=== PATIENT | male | born 1970 | race Caucasian/White ===

== ENCOUNTER 2023-01-28 13:16 | Emergency (ER) | payer OTHER ==
[2023-01-28 14:04] LABS: Absolute Lymphocytes (CBC) 2.9 K/uL (0.7-4.9); Hematocrit 45.9 % (39.6-49.0); Lymphocytes % 23.8 % (15.3-44.8); MCV 93.8 fL (80-100); MPV 9.3 fL (7.6-11.3); Platelets 111 thou/uL (152-406)
[2023-01-28] MEDS ORDERED: predniSONE 20 MG TAB ONE (14:04)
[2023-01-28] MEDS ORDERED: DIPHENHYDRAMINE 50 MG/ML VIAL ONE (14:04)
[2023-01-28] MEDS ORDERED: METHYLPREDNISOLONE 125 MG INJ ONE (14:04)
[2023-01-28] MEDS ORDERED: NA CHLORIDE 0.9% 1,000 ML ONE (14:05)
[2023-01-28] MEDS ORDERED: FAMOTIDINE 20 MG/2 ML VIAL IV ONE (14:05)
[2023-01-28] MEDS ORDERED: ONDANSETRON 4 MG/2 ML VIAL ONE (14:28)
[2023-01-28] MEDS ORDERED: KETOROLAC 30 MG/ML INJ ONE (14:28)
[2023-01-28 15:11] LABS: Albumin 3.3 g/dL (3.4-5.0); Bilirubin Total 0.4 mg/dL (0.2-1.0); Potassium 3.7 mEq/L (3.5-5.1); Troponin High Sensitivity 3.4 pg/mL (<58.9)
--- NOTE | 2023-01-28 15:21 | ER ---
Nurse's Notes [facility] Name: Marcin Herrera Age: 52 yrs Sex: Male : 1970 Arrival Date: 01/28/2023 Time: 13:16 Bed 18 Private MD: Diagnosis: Toxic effect of venom of wasps;Toxic effect of venom of wasps, accidental (unintentional) Presentation: 01/28 13:25 Chief complaint: Patient states: being stung in the head by something unknown. Pt cm10 states that this happened 20 minutes [employer]IOR [employer]. Pt reports that last time he was stung by something, "I passed out and started having seizures.". Coronavirus screen: Vaccine status: Patient reports being unvaccinated. Ebola Screen: Patient denies travel to an Ebola-affected area in the 21 days before illness onset. No symptoms or risks identified at this time. Initial Sepsis Screen: Does the patient meet any 2 criteria? No. Patient's initial sepsis screen is negative. Does the patient have a suspected source of infection? No. Patient's initial sepsis screen is negative. Risk Assessment: Do you want to hurt yourself or someone else? Patient reports no desire to harm self or others. Onset of symptoms was January 28, 2023. 13:25 Method Of Arrival: Ambulatory cm10 13:25 Acuity: CHARLIE 3 cm10 Historical: - Allergies: 13:27 Amoxicillin; cm10 - Home Meds: 13:27 None [Active]; cm10 - PMHx: 13:27 None; cm10 - Immunization history:: Adult Immunizations unknown. - Social history:: Smoking status: Patient reports the use of cigarette tobacco products, smokes one pack cigarettes per day. Screenin:30 [facility] ED Fall Risk Assessment (Adult) History of falling in the last 3 months, me1 including since admission No falls in past 3 months (0 pts) Confusion or Disorientation No (0 pts) Intoxicated or Sedated No (0 pts) Impaired Gait No (0 pts) Mobility Assist Device Used No (0 pt) Altered Elimination No (0 pt) Score/Fall Risk Level 0 - 2 = Low Risk Oriented to surroundings, Educated pt \\T\\ family on fall prevention, incl call for assistance when getting out of bed, Hourly rounding (assess needs \\T\\ fall precautionary measures) done. Abuse screen: Denies threats or abuse. Nutritional screening: No deficits noted. Tuberculosis screening: No symptoms or risk factors identified. Assessment: 13:30 General: Appears uncomfortable, well groomed, well developed, well nourished, Behavior me1 is cooperative, appropriate for age, anxious, restless, Reports getting stung on the back of the head by something at 12:50pm. Reports that his face turned red and was sweating all over then his chest started to feel tight. Pain: Denies pain. 13:30 Pain: Complains of pain in head Pain currently is 7 out of 10 on a pain scale. Quality me1 of pain is described as throbbing. Neuro: Level of Consciousness is awake, alert, obeys commands, Oriented to person, place, time, situation, Appropriate for age. Cardiovascular: Capillary refill < 3 seconds Patient's skin is warm and dry. Respiratory: Airway is patent Respiratory effort is even, unlabored, Respiratory pattern is regular, symmetrical. Vital Signs: 13:25 BP 155 / 97; Pulse 84; Resp 18; Temp 97.1(TE); Pulse Ox 98% ; Weight 86.18 kg; Height 6 cm10 ft. 0 in. ; Pain 8/10; 15:07 BP 122 / 89; Pulse 74; Resp 17; Pulse Ox 100% on R/A; ld1 15:39 BP 126 / 94; Pulse 72; Resp 20; Pulse Ox 96% on R/A; me1 13:25 Body Mass Index 25.77 (86.18 kg, 182.88 cm) cm10 13:25 Pain Scale: Adult cm10 ED Course: 13:19 Patient arrived in ED. rg4 13:26 Jez Damian MD is Attending Physician. dragan 13:27 Triage completed. cm10 13:27 Arm band placed on Patient placed in an exam room, on a stretcher. cm10 13:30 Patient has correct armband on for positive identification. Bed in low position. Call me1 light in reach. Side rails up X2. Provided Education on: POC. Verbalized understanding. . 13:30 No provider procedures requiring assistance completed. IV is patent, is intact, Flushed.me1 13:33 Jina Plunkett RN is Primary Nurse. me1 14:09 Inserted saline lock: 22 gauge in right antecubital area, using aseptic technique. me1 15:51 IV discontinued, intact, bleeding controlled, No redness/swelling at site. Pressure cm10 dressing applied. 16:43 Primary Nurse role handed off by Jina Plunkett, MARY ANNE eb Administered Medications: 14:09 Drug: Famotidine IVP 40 mg Route: IVP; Site: right antecubital; me1 14:43 Follow up: Response: No adverse reaction cm10 14:09 Drug: MethylPrednisoLONE IVP 125 mg Route: IVP; Site: right antecubital; me1 14:43 Follow up: Response: No adverse reaction cm10 14:09 Drug: predniSONE PO 60 mg Route: PO; me1 14:44 Follow up: Response: No adverse reaction cm10 14:10 Drug: NS 0.9% IV 1000 ml Route: IV; Rate: 1 bolus; Site: right antecubital; me1 15:40 Follow up: IV Status: Completed infusion; IV Intake: 1000ml me1 14:10 Drug: diphenhydrAMINE IVP 50 mg Route: IVP; Site: right antecubital; me1 14:43 Follow up: Response: No adverse reaction cm10 14:18 Drug: Ketorolac IVP 30 mg Route: IVP; Site: right antecubital; me1 14:44 Follow up: Response: No adverse reaction; Pain is decreased cm10 14:18 Drug: Ondansetron IVP 4 mg Route: IVP; Site: right antecubital; me1 14:44 Follow up: Response: No adverse reaction cm10 Medication: 13:30 VIS not applicable for this client. me1 Intake: 15:40 IV: 1000ml; Total: 1000ml. me1 Outcome: 15:21 Discharge ordered by . dragan 15:51 Discharged to home ambulatory, with family. cm10 15:51 Condition: good 15:51 Discharge instructions given to patient, Instructed on discharge instructions, follow up and referral plans. medication usage, Demonstrated understanding of instructions, follow-up care, medications, Prescriptions given X 4. 15:51 Patient left the ED. cm10 16:44 Patient left the ED. eb Signatures: Jez Damian MD MD cha Garcia, Rubi 4 Anamaria Caraballo Lauren, RN RN ld1 Carito Daley RN RN cm10 Eddleman, Jina, RN RN me1
--- NOTE | 2023-01-28 15:21 | EDPHYS ---
Physician Documentation [facility] Name: Marcin Herrera Age: 52 yrs Sex: Male : 1970 Arrival Date: 01/28/2023 Time: 13:16 Bed 18 Private MD: ED Physician Jez Damian HPI: 01/28 14:02 This 52 yrs old Male presents to ER via Ambulatory with complaints of Wasp dragan Sting. 14:02 The patient presents with difficulty swallowing, rash, redness of skin. Onset: The dragan symptoms/episode began/occurred just prior to arrival. Associated signs and symptoms: Pertinent positives: chest pain, nausea, shortness of breath. Possible causes: wasp. At home the patient or guardian has treated the symptoms with nothing. Severity of symptoms: At their worst the symptoms were moderate in the emergency department the symptoms are unchanged. The patient has experienced similar episodes in the past, a few times. Historical: - Allergies: 13:27 Amoxicillin; cm10 - Home Meds: 13:27 None [Active]; cm10 - PMHx: 13:27 None; cm10 - Immunization history:: Adult Immunizations unknown. - Social history:: Smoking status: Patient reports the use of cigarette tobacco products, smokes one pack cigarettes per day. ROS: 14:03 Constitutional: Negative for fever, chills, and weight loss, Eyes: Negative for injury, dragan pain, redness, and discharge, ENT: Negative for injury, pain, and discharge, Neck: Negative for injury, pain, and swelling, Cardiovascular: Negative for chest pain, palpitations, and edema, Respiratory: Negative for shortness of breath, cough, wheezing, and pleuritic chest pain, Abdomen/GI: Negative for abdominal pain, nausea, vomiting, diarrhea, and constipation, Back: Negative for injury and pain, : Negative for injury, bleeding, discharge, and swelling, MS/Extremity: Negative for injury and deformity, Neuro: Negative for headache, weakness, numbness, tingling, and seizure, Psych: Negative for depression, anxiety, suicide ideation, homicidal ideation, and hallucinations, Allergy/Immunology: Negative for hives, rash, and allergies, Endocrine: Negative for neck swelling, polydipsia, polyuria, polyphagia, and marked weight changes, Hematologic/Lymphatic: Negative for swollen nodes, abnormal bleeding, and unusual bruising. 14:03 Skin: Positive for rash, swelling, of the scalp. Exam: 14:03 Constitutional: This is a well developed, well nourished patient who is awake, alert, dragan and in no acute distress. Eyes: Pupils equal round and reactive to light, extra-ocular motions intact. Lids and lashes normal. Conjunctiva and sclera are non-icteric and not injected. Cornea within normal limits. Periorbital areas with no swelling, redness, or edema. ENT: Nares patent. No nasal discharge, no septal abnormalities noted. Tympanic membranes are normal and external auditory canals are clear. Oropharynx with no redness, swelling, or masses, exudates, or evidence of obstruction, uvula midline. Mucous membranes moist. Neck: Trachea midline, no thyromegaly or masses palpated, and no cervical lymphadenopathy. Supple, full range of motion without nuchal rigidity, or vertebral point tenderness. No Meningismus. Chest/axilla: Normal chest wall appearance and motion. Nontender with no deformity. No lesions are appreciated. Cardiovascular: Regular rate and rhythm with a normal S1 and S2. No gallops, murmurs, or rubs. Normal PMI, no JVD. No pulse deficits. Respiratory: Lungs have equal breath sounds bilaterally, clear to auscultation and percussion. No rales, rhonchi or wheezes noted. No increased work of breathing, no retractions or nasal flaring. Abdomen/GI: Soft, non-tender, with normal bowel sounds. No distension or tympany. No guarding or rebound. No evidence of tenderness throughout. Back: No spinal tenderness. No costovertebral tenderness. Full range of motion. Male : Normal genitalia with no discharge or lesions. Skin: Warm, dry with normal turgor. Normal color with no rashes, no lesions, and no evidence of cellulitis. MS/ Extremity: Pulses equal, no cyanosis. Neurovascular intact. Full, normal range of motion. Neuro: Awake and alert, GCS 15, oriented to person, place, time, and situation. Cranial nerves II-XII grossly intact. Motor strength 5/5 in all extremities. Sensory grossly intact. Cerebellar exam normal. Normal gait. Psych: Awake, alert, with orientation to person, place and time. Behavior, mood, and affect are within normal limits. 14:03 Head/face: Noted is swelling, that is mild, of the left occipital area and right occipital area. 16:43 ECG was reviewed by the Attending Physician. [facility] Vital Signs: 13:25 BP 155 / 97; Pulse 84; Resp 18; Temp 97.1(TE); Pulse Ox 98% ; Weight 86.18 kg; Height 6 cm10 ft. 0 in. ; Pain 8/10; 15:07 BP 122 / 89; Pulse 74; Resp 17; Pulse Ox 100% on R/A; ld1 15:39 BP 126 / 94; Pulse 72; Resp 20; Pulse Ox 96% on R/A; me1 13:25 Body Mass Index 25.77 (86.18 kg, 182.88 cm) cm10 13:25 Pain Scale: Adult cm10 MDM: 13:26 Patient medically screened. [facility] 14:05 Differential diagnosis: anaphylaxis, angioedema, bronchospasm, Epiglottis urticaria. [facility] Data reviewed: vital signs, nurses notes, lab test result(s), EKG. Consideration of Admission/Observation Escalation of care including admission/observation considered. I considered the following discharge prescriptions or medication management in the emergency department Medications were administered in the Emergency Department. See MAR. Test considered but Not performed: X-ray: no cxr. Historians other than the Patient: Spouse/Significant Other: . Care significantly affected by the following chronic conditions: none. Counseling: I had a detailed discussion with the patient and/or guardian regarding the historical points, exam findings, and any diagnostic results supporting the discharge/admit diagnosis, lab results, the need for outpatient follow up, for definitive care, a family practitioner. 01/28 13:41 Order name: CBC with Diff; Complete Time: 15:21 [facility] 01/28 13:41 Order name: Comprehensive Metabolic Panel; Complete Time: 15:21 [facility] 01/28 13:41 Order name: Troponin High Sensitivity; Complete Time: 15:21 [facility] 01/28 13:41 Order name: EKG; Complete Time: 13:41 [facility] 01/28 13:41 Order name: EKG - Nurse/Tech; Complete Time: 14:47 [facility] EC:43 Rate is 69 beats/min. Rhythm is regular. QRS [place] is Normal. MS interval is normal. QRS dragan interval is normal. QT interval is normal. No Q waves. T waves are Normal. No ST changes noted. Clinical impression: NSR w/ Non-specific ST/T Changes and No evidence of ischemia. Interpreted by me. Reviewed by me. Administered Medications: 14:09 Drug: Famotidine IVP 40 mg Route: IVP; Site: right antecubital; me1 14:43 Follow up: Response: No adverse reaction cm10 14:09 Drug: MethylPrednisoLONE IVP 125 mg Route: IVP; Site: right antecubital; me1 14:43 Follow up: Response: No adverse reaction cm10 14:09 Drug: predniSONE PO 60 mg Route: PO; me1 14:44 Follow up: Response: No adverse reaction cm10 14:10 Drug: NS 0.9% IV 1000 ml Route: IV; Rate: 1 bolus; Site: right antecubital; me1 15:40 Follow up: IV Status: Completed infusion; IV Intake: 1000ml me1 14:10 Drug: diphenhydrAMINE IVP 50 mg Route: IVP; Site: right antecubital; me1 14:43 Follow up: Response: No adverse reaction cm10 14:18 Drug: Ketorolac IVP 30 mg Route: IVP; Site: right antecubital; me1 14:44 Follow up: Response: No adverse reaction; Pain is decreased cm10 14:18 Drug: Ondansetron IVP 4 mg Route: IVP; Site: right antecubital; me1 14:44 Follow up: Response: No adverse reaction cm10 Disposition Summary: 01/28/23 15:21 Discharge Ordered Location: Home dragan Condition: Stable dragan Diagnosis - Toxic effect of venom of wasps dragan - Toxic effect of venom of wasps, accidental (unintentional) dragan Followup: dragan - With: Private Physician - When: 2 - 3 days - Reason: Recheck today's complaints, Continuance of care, Re-evaluation by your physician Discharge Instructions: - Discharge Summary Sheet dragan - Anaphylactic Reaction, Adult dragan - Bee, Wasp, or Hornet Sting, Adult dragan - Anaphylactic Reaction, Adult, [id number] [facility] Forms: - Medication Reconciliation Form dragan - Thank You Letter dragan - Antibiotic Education dragan - Prescription Opioid Use dragan - Patient Portal Instructions dragan - Leadership Thank You Letter [facility] Prescriptions: - EpiPen 0.3 mg/0.3 mL Injection Auto-Injector - administer 0.3 milliliter by INTRAMUSCULAR route once; 1 packet; Refills: 0, dragan Product Selection Permitted - Benadryl 25 mg Oral Capsule - take 2 capsule by ORAL route every 6 hours As needed; 36 tablet; Refills: 0, [facility] Product Selection Permitted - Pepcid 20 mg Oral Tablet - take 1 tablet by ORAL route every 12 hours for 21 days; 42 tablet; Refills: 0, [facility] Product Selection Permitted - Prednisone 20 mg Oral Tablet - take 2 tablets by ORAL route once daily for 5 days; 10 tablet; Refills: 0, [facility] Product Selection Permitted Signatures: Dispatcher [employer] Jez Quintero MD MD cha Martinez, Clarissa RN RN cm10 Jina Plunkett RN RN me1
[2023-01-28 15:56] VITALS: TEMP 97.1
[2023-01-28 16:00] VITALS: BP 126/94; O2SAT 96
--- NOTE | 2023-01-29 12:15 | EKG ---
Test Date: 2023-01-28 Test Time: 14:50:49 Cardboard Cutter: MEASUREMENT RESULTS: Intervals: Rate: 69 OH: 132 QRSD: 100 QT: 420 QTc: 450 [place]: P: 40 OH: 132 QRS: 69 T: 59 INTERPRETIVE STATEMENTS: Normal sinus rhythm Incomplete right bundle branch block Borderline ECG No previous ECG available for comparison Electronically Signed On 01-29-23 12:12:34 CDT by Johnny Alonzo
== END 2023-01-28 16:44 | disposition home or self-care (01) ==
LOC: ER 13:16
DX: R07.9 Chest pain, unspecified (principal); T63.461A Toxic effect of venom of wasps, accidental (unintentional), initial encounter; R21 Rash and other nonspecific skin eruption; F17.210 Nicotine dependence, cigarettes, uncomplicated; Z88.1 Allergy status to other antibiotic agents
CPT/HCPCS: 85025; 36415; 84484; 80053; J7512; J1200; J2930; J2405; J7030; 93005; 96361; 96374; 96375; 99284

== ENCOUNTER 2024-01-27 08:45 | Emergency (ER) | payer OTHER ==
--- OUTSIDE RECORDS SUMMARY | 2024-01-27 08:48 | XMS REPORT | Continuity of Care Document ---
Author Name Unknown Address [address] [place] [address] [facility] Address [address] [place] [address] Care Team Providers Care [employer] Worker Name Role Phone ILIA_F Attending Clinician Unavailable ILIA_F Admitting Clinician Unavailable Payers Payer Name Policy Type Policy Number Effective Date Expirati on Date Source Problems Condition Name Condition Details Condition Category Status Onset Date Resolution Date Last Treatment Date Treating Clinician Comments Source Hypertensi ve disorder Hypertensi ve Disorder Problem Active 07-04 00:00: 00 [facility] COVID-19 Covid-19 Problem Active 07-04 00:00: 00 [facility] Allergies, Adverse Reactions, Alerts Allergy Name Allergy Type Status Severity Reaction(s) Onset Date Inactive Date Treating Clinician Comments Source Erythrom ycin Base Allergy to substanc e Active Hives [facility] Social History Smoking Status Start Date Stop Date Source Heavy Tobacco Smoker [facility] Medications Ordered Medication Name Filled Medication Name Start Date Stop Date Current Medication? Ordering Clinician Indication Dosage Frequency Signature (SIG) Comments Components Source epinephrine 0.3 mg/0.3 mL injection, auto-inject or INJECT ONE PEN SUBCUTANEOU SLY INTRAMUSCUL ODESSA DIRECTED BY THE DOCTOR epinephrine 0.3 mg/0.3 mL injection, auto-inject or INJECT ONE PEN SUBCUTANEOU SLY INTRAMUSCUL ODESSA DIRECTED BY THE DOCTOR No epinephrin e 0.3 mg/0.3 mL injection, auto-injec tor INJECT ONE PEN SUBCUTANEO USLY INTRAMUSCU LARLY DIRECTED BY THE DOCTOR [facility] losartan 50 mg tablet TAKE 1 TABLET BY MOUTH DAILY losartan 50 mg tablet TAKE 1 TABLET BY MOUTH DAILY No losartan 50 mg tablet TAKE 1 TABLET BY MOUTH DAILY [facility] mupirocin 2 % topical ointment APPLY A SMALL AMOUNT TO THE AFFECTED AREA BY TOPICAL ROUTE 3 TIMES PER DAY mupirocin 2 % topical ointment APPLY A SMALL AMOUNT TO THE AFFECTED AREA BY TOPICAL ROUTE 3 TIMES PER DAY No mupirocin 2 % topical ointment APPLY A SMALL AMOUNT TO THE AFFECTED AREA BY TOPICAL ROUTE 3 TIMES PER DAY [facility] sulfamethox azole 800 mg-trimetho prim 160 mg tablet Take 1 tablet every 12 hours by oral route as directed for 10 days, for Skin Infection. sulfamethox azole 800 mg-trimetho prim 160 mg tablet Take 1 tablet every 12 hours by oral route as directed for 10 days, for Skin Infection. No 1 Q12H sulfametho xazole 800 mg-trimeth oprim 160 mg tablet Take 1 tablet every 12 hours by oral route as directed for 10 days, for Skin Infection. [facility] Vital Signs Vital Name Observation Time Observation Value Comments S ource Height 2024-01-21 00:00:00 72 [in_i] [facility] Body Weight 2024-01-21 00:00:00 2912 [oz_av] [facility] BP Systolic 2024-01-21 00:00:00 140 mm[Hg] [facility] BMI (Body Mass Index) 2024-01-21 00:00:00 24.7 kg/m2 [facility] BP Diastolic 2024-01-21 00:00:00 72 mm[Hg] [facility] BP Systolic 2023-07-04 00:00:00 144 mm[Hg] [facility] Body Weight 2023-07-04 00:00:00 3184 [oz_av] [facility] BP Diastolic 2023-07-04 00:00:00 80 mm[Hg] [facility] Height 2023-07-04 00:00:00 72 [in_i] [facility] BMI (Body Mass Index) 2023-07-04 00:00:00 27 kg/m2 [facility] Encounters Start Date/Time End Date/Time Encounter Type Admission Type Attending [facility] Care Department Encounter ID Source 2024-01-21 00:00:00 2024-01-21 00:00:00 ALYSIA Mina: [address] [place], [place] [id number] , Ph. [facility], EVIE [place]IA [place] [id number] 2023-09-14 00:00:00 2023-09-14 00:00:00 Outpatient [facility] [id number] 2023-08-10 00:00:00 2023-08-10 00:00:00 Outpatient [facility] [id number] 2023-07-06 00:00:00 2023-07-06 00:00:00 Outpatient [facility] [id number] 2023-07-04 00:00:00 2023-07-04 00:00:00 Outpatient [facility] [id number] 2023-07-04 00:00:00 2023-07-04 00:00:00 ALYSIA Mina: [address], [place] [address] , Ph. [phone] [facility], DR. ELIZALDE [id number] [facility] 2023-07-03 00:00:00 2023-07-03 00:00:00 Outpatient [facility] [id number] [facility]
[2024-01-27] MEDS ORDERED: LIDOCAINE 4% PATCH ONE (09:44)
[2024-01-27 09:58] LABS: Absolute Basophils 0.1 K/uL (0-0.5); Absolute Eosinophils 0.1 K/uL (0-0.5); Absolute Lymphocytes (CBC) 1.4 K/uL (0.7-4.9); Absolute Monocytes 0.8 K/uL (0.1-1.3); Absolute Neutrophil 16.1 K/uL (1.8-8.0); Basophils % 0.5 % (0-1.3); Eosinophils % 0.6 % (0-4.4); Hematocrit 46.4 % (39.6-49.0); Hemoglobin 15.4 g/dL (13.6-17.9); Lymphocytes % 7.5 % (15.3-44.8); MCH 31.3 pg (27.0-35.0); MCHC 33.3 g/dL (32.0-36.0); MPV 9.8 fL (7.6-11.3); Monocytes % 4.2 % (3.3-12.3); Neutrophils % 87.2 % (41.7-73.7); Platelets 97 thou/uL (152-406); RBC Red Blood Cell Count 4.93 M/uL (4.33-5.43); Red Cell Distribution Width 15.3 % (12.1-15.2)
[2024-01-27 10:12] LABS: Anion Gap 6.1 mEq/L (5.0-15.0); Potassium 4.1 mEq/L (3.5-5.1)
[2024-01-27 10:36] LABS: Blood Morphology Comment NOT SEEN (NOT SEEN); Platelet Estimate DECR; White Blood Cell Scan OK (OK)
--- NOTE | 2024-01-27 11:43 | RAD REPORT ---
EXAM DESCRIPTION: CT - Head C Spine Cap Chicho Fay - 01/27/2024 10:35 am CLINICAL HISTORY: TRAUMA COMPARISON: No comparisons TECHNIQUE: Head and cervical spine CT images were obtained without IV contrast. Chest, abdomen, and pelvis CT images were obtained following intravenous administration of 90 mL Isovue-300. Multiplanar reformats were generated and reviewed. All CT scans are performed using dose optimization technique as appropriate and may include automated exposure control or mA/KV adjustment according to patient size. FINDINGS: CT HEAD: No intracranial hemorrhage, mass effect, or edema. No evidence of acute territorial infarct. No midli ne shift or abnormal fluid collection. The ventricles are normal in caliber and configuration for age . Basal cisterns are patent. Mastoid aircells and paranasal sinuses are clear. No acute skull fractur e. CT CERVICAL SPINE: No acute cervical spine fracture or subluxation. Vertebral body heights are well maintained. Multilev el mild degenerative changes with [id number] degrees of neural foraminal narrowing at C4-5 and C5-6 bilaterally. No hyperattenuating canal hematoma. Prevertebral and paraspinous soft tissues are u nremarkable. CT CHEST: Mild right apical and posterior pneumothorax. No pulmonary contusion or pleural fluid collection. Dep endent bibasilar atelectatic changes. No mediastinal hematoma and the aorta and pulmonary arteries ar e unremarkable. No chest will mass or abnormal axillary finding. No displaced rib fracture or other s ignificant bony finding. CT ABDOMEN/ PELVIS: No evidence of traumatic injury to solid abdominal viscera. Incidentally noted 2.1 cm right renal int erpolar cyst. Gallbladder and biliary tree are unremarkable. No bowel injury or significant finding. No free air, free fluid or abnormal fat stranding. No urinary bladder abnormality. Mildly displaced right third, fifth, and sixth rib fractures. IMPRESSION: Mild right apical and posterior pneumothorax. Mildly displaced right third, fifth, and sixth rib fractures. Other incidental findings as above. The findings were communicated to Dr Dove on 01/27/2024 at 11:36 hours.
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
--- NOTE | 2024-01-27 12:08 | RAD REPORT ---
EXAM DESCRIPTION: Shoulder Right 2 View - 01/27/2024 11:57 am CLINICAL HISTORY: PAIN COMPARISON: Head C Spine Cap W Con dated 01/27/[address] of the same day TECHNIQUE: Internal and external rotation views of the right shoulder were obtained. FINDINGS: There is no acute shoulder fracture or dislocation. AC joint mild degenerative changes wit hin accessory ossicle at the distal clavicle. Minimally displaced third and sixth right rib fractures are appreciated. No acute or suspicious findings. IMPRESSION: No acute osseous abnormality of the right shoulder. Mild AC joint degenerative changes. Minimally displaced right third and sixth rib fractures.
[2024-01-27] MEDS ORDERED: KETOROLAC 30 MG/ML INJ ONE (12:09)
[2024-01-27] MEDS ORDERED: NA CHLORIDE 0.9% 100 ML ONE (12:09)
[2024-01-27] MEDS ORDERED: METHOCARBAMOL 1,000 MG/10 ML VIAL ONE (12:09)
[2024-01-27 13:26] VITALS: TEMP 97.7
[2024-01-27 13:31] VITALS: BP 138/87; O2SAT 97
== END 2024-01-27 13:22 | disposition short-term general hospital (02) ==
LOC: ER 08:45
DX: S22.41XA Multiple fractures of ribs, right side, initial encounter for closed fracture (principal); S27.0XXA Traumatic pneumothorax, initial encounter; M25.511 Pain in right shoulder; S09.90XA Unspecified injury of head, initial encounter; I10 Essential (primary) hypertension; F17.210 Nicotine dependence, cigarettes, uncomplicated
CPT/HCPCS: 96365; 85025; 80048; 36415; 86900; 86850; 86901; 70450; 72125; 71260; 74177; 73030; 96375; 99285; Q9967; J2001; J2800

== ENCOUNTER 2024-08-11 10:16 | Emergency (ER) | payer OTHER ==
--- OUTSIDE RECORDS SUMMARY | 2024-08-11 10:20 | XMS REPORT | Continuity of Care Document ---
Author Name Unknown Address [address] [place] [address] [address] [place] [address] [facility] Address [address] [facility]. [address] [place] [address] Care Team Providers Care Spa Technician Name Role Phone RAZ TYLER Attending Clinician Unakylie ailable ROUSE_F Attending Clinician Unavailable TARYN SANTAMARIA Admitting Clinician Unavailab le ROUSE_F Admitting Clinician Unavailable Payers Payer Name Policy Type Policy Number Effective Date Expirati on Date Source Problems Condition Name Condition Details Condition Category Status Onset Date Resolution Date Last Treatment Date Treating Clinician Comments Source Hypertensi ve disorder Hypertensi ve Disorder Problem Active 07-04 00:00: 00 [facility] COVID-19 Covid-19 Problem Active 07-04 00:00: 00 [facility] Allergies, Adverse Reactions, Alerts Allergy Name Allergy Type Status Severity Reaction(s) Onset Date Inactive Date Treating Clinician Comments Source Erythrom ycin Base Allergy to substanc e Active Hives [facility] Social History Smoking Status Start Date Stop Date Source Heavy Tobacco Smoker [facility] Medications Ordered Medication Name Filled Medication Name Start Date Stop Date Current Medication? Ordering Clinician Indication Dosage Frequency Signature (SIG) Comments Components Source ketorolac 30 mg/mL (1 mL) injection solution Inject 1 mL by intramuscul ar route. ketorolac 30 mg/mL (1 mL) injection solution Inject 1 mL by intramuscul ar route. 07-16 13:43: 00 No 1mL ketorolac 30 mg/mL (1 mL) injection solution Inject 1 mL by intramuscu lar route. [facility] losartan 50 mg tablet TAKE 1 TABLET BY MOUTH DAILY losartan 50 mg tablet TAKE 1 TABLET BY MOUTH DAILY 2-12 00:00: 00 No losartan 50 mg tablet TAKE 1 TABLET BY MOUTH DAILY [facility] epinephrine 0.3 mg/0.3 mL injection, auto-inject or INJECT ONE PEN SUBCUTANEOU SLY INTRAMUSCUL ODESSA DIRECTED BY THE DOCTOR epinephrine 0.3 mg/0.3 mL injection, auto-inject or INJECT ONE PEN SUBCUTANEOU SLY INTRAMUSCUL ODESSA DIRECTED BY THE DOCTOR No epinephrin e 0.3 mg/0.3 mL injection, auto-injec tor INJECT ONE PEN SUBCUTANEO USLY INTRAMUSCU LARLY DIRECTED BY THE DOCTOR [facility] cyclobenzap rine 10 mg tablet TAKE 1 TABLET 3 TIMES A DAY BY ORAL ROUTE NEEDED FOR 10 DAYS, FOR BACK AND SHOULDER PAIN. cyclobenzap rine 10 mg tablet TAKE 1 TABLET 3 TIMES A DAY BY ORAL ROUTE NEEDED FOR 10 DAYS, FOR BACK AND SHOULDER PAIN. No 1 TID cyclobenza rebecca 10 mg tablet TAKE 1 TABLET 3 TIMES A DAY BY ORAL ROUTE NEEDED FOR 10 DAYS, FOR BACK AND SHOULDER PAIN. [facility] acetaminoph en 300 mg-codeine 15 mg tablet TAKE 1 TABLET BY MOUTH EVERY 6 HOURS NEEDED FOR PAIN FOR 3 DAYS acetaminoph en 300 mg-codeine 15 mg tablet TAKE 1 TABLET BY MOUTH EVERY 6 HOURS NEEDED FOR PAIN FOR 3 DAYS No acetaminop hen 300 mg-codeine 15 mg tablet TAKE 1 TABLET BY MOUTH EVERY 6 HOURS NEEDED FOR PAIN FOR 3 DAYS [facility] gabapentin 100 mg capsule Take 1 capsule 3 times a day by oral route as needed for 10 days, for Pain. gabapentin 100 mg capsule Take 1 capsule 3 times a day by oral route as needed for 10 days, for Pain. No 1capsul e(s) TID gabapentin 100 mg capsule Take 1 capsule 3 times a day by oral route as needed for 10 days, for Pain. [facility] naproxen 500 mg tablet TAKE 1 TABLET BY MOUTH TWICE A DAY FOR 10 DAYS NEEDED FOR PAIN naproxen 500 mg tablet TAKE 1 TABLET BY MOUTH TWICE A DAY FOR 10 DAYS NEEDED FOR PAIN No naproxen 500 mg tablet TAKE 1 TABLET BY MOUTH TWICE A DAY FOR 10 DAYS NEEDED FOR PAIN [facility] Vital Signs Vital Name Observation Time Observation Value Comments S ezequielce BP Systolic 2024-07-24 00:00:00 142 mm[Hg] [facility] BP Diastolic 2024-07-24 00:00:00 86 mm[Hg] [facility] Body Weight 2024-07-24 00:00:00 2816 [oz_av] [facility] Height 2024-07-24 00:00:00 72 [in_i] [facility] BMI (Body Mass Index) 2024-07-24 00:00:00 23.9 kg/m2 [facility] BP Systolic 2024-07-16 00:00:00 152 mm[Hg] [facility] Height 2024-07-16 00:00:00 72 [in_i] [facility] BMI (Body Mass Index) 2024-07-16 00:00:00 24.3 kg/m2 [facility] BP Diastolic 2024-07-16 00:00:00 88 mm[Hg] [facility] Body Weight 2024-07-16 00:00:00 2864 [oz_av] [facility] Body Weight 2024-01-30 00:00:00 2912 [oz_av] [facility] BP Systolic 2024-01-30 00:00:00 130 mm[Hg] [facility] BMI (Body Mass Index) 2024-01-30 00:00:00 24.7 kg/m2 [facility] Height 2024-01-30 00:00:00 72 [in_i] [facility] BP Diastolic 2024-01-30 00:00:00 62 mm[Hg] [facility] Height 2024-01-21 00:00:00 72 [in_i] [facility] Body Weight 2024-01-21 00:00:00 2912 [oz_av] [facility] BP Systolic 2024-01-21 00:00:00 140 mm[Hg] [facility] BMI (Body Mass Index) 2024-01-21 00:00:00 24.7 kg/m2 [facility] BP Diastolic 2024-01-21 00:00:00 72 mm[Hg] [facility] BP Systolic 2023-07-04 00:00:00 144 mm[Hg] [facility] Body Weight 2023-07-04 00:00:00 3184 [oz_av] [facility] BP Diastolic 2023-07-04 00:00:00 80 mm[Hg] [facility] Height 2023-07-04 00:00:00 72 [in_i] [facility] BMI (Body Mass Index) 2023-07-04 00:00:00 27 kg/m2 [facility] Procedures Procedure Date / Time Performed Performing Clinicia n Source MRI, shoulder, w/o contrast 2024-07-24 00:00:00 [facility] Excision of Hydrocele [facility] Encounters Start Date/Time End Date/Time Encounter Type Admission Type Attending Clinicians Care Facility Care Department Encounter ID Source 2024-07-24 00:00:00 2024-07-24 00:00:00 ALYSIA Mina: [address] [place] [address] , Ph. [facility] [id number] 022 [facility] 2024-07-16 00:00:00 2024-07-16 00:00:00 ALYSIA Mina: [address] [place] [address] , Ph. [phone] [facility] 2024-01-30 00:00:00 2024-01-30 00:00:00 Israel Villegas ALYSIA: [address] [place] [address] , Ph. [facility], [facility], [facility] [address] [facility] 2024-01-27 13:19:00 2024-01-27 22:10:00 Emergency E RAZ TYLER [facility] ISMAEL [id number] 38 [facility] 2024-01-21 00:00:00 2024-01-21 00:00:00 Israel Villegas ALYSIA: [address] [place] [address] , Ph. [phone] [facility], [facility], PRODUCTION ILLUSTRATOR-C [address] [facility] 2023-09-14 00:00:00 2023-09-14 00:00:00 Outpatient ROUSE_F [facility] [id number] [facility] 2023-08-10 00:00:00 2023-08-10 00:00:00 Outpatient ROUSE_F [facility] [id number] [facility] 2023-07-06 00:00:00 2023-07-06 00:00:00 Outpatient ROUSE_F [facility] [id number] [facility] 2023-07-04 00:00:00 2023-07-04 00:00:00 Outpatient ROUSE_F [facility] [id number] [facility] 2023-07-04 00:00:00 2023-07-04 00:00:00 Israel Villegas ALYSIA: [address] [place] [address] , Ph. [facility] - [facility] - [facility], DR. ELIZALDE [id number] [facility] 2023-07-03 00:00:00 2023-07-03 00:00:00 Outpatient ROU_F [facility] [id number] [facility]
[2024-08-11] MEDS ORDERED: ONDANSETRON 4 MG/2 ML VIAL ONE (11:59)
[2024-08-11] MEDS ORDERED: FENTANYL CITR 100 MCG/2 ML ONE (11:59)
[2024-08-11 12:02] LABS: Absolute Lymphocytes (CBC) 1.1 K/uL (0.7-4.9); Absolute Monocytes 0.9 K/uL (0.1-1.3); Absolute Neutrophil 22.4 K/uL (1.8-8.0); Basophils % 0.1 % (0-1.3); Eosinophils % 0.1 % (0-4.4); Hematocrit 24.5 % (39.6-49.0); Lymphocytes % 4.3 % (15.3-44.8); MCH 29.5 pg (27.0-35.0); MCHC 32.7 g/dL (32.0-36.0); MCV 90.3 fL (80-100); MPV 9.2 fL (7.6-11.3); Monocytes % 3.9 % (3.3-12.3); Neutrophils % 91.6 % (41.7-73.7); Nucleated Red Blood Cells % 0.1 % (0-0); Platelets 141 thou/uL (152-406); RBC Red Blood Cell Count 2.71 M/uL (4.33-5.43); Red Cell Distribution Width 17.9 % (12.1-15.2)
[2024-08-11 12:09] LABS: PT Prothrombin Time 12.6 SECONDS (10-13.0); Protime INR 1.11
--- NOTE | 2024-08-11 12:18 | RAD REPORT ---
EXAMINATION: US Extrem Venous W Compress Jonathan CLINICAL INDICATION: [facility] MAIN SWELLING Bed Name: 3 Y TECHNIQUE: Complete bilateral duplex sonography of the BILATERAL lower extremity veins was performed. The examination included compression for vein patency, color Doppler imaging and flow augmentation in response to distal compression of the distal external iliac, common femoral, femoral, popliteal, t ibial, and great and small saphenous veins. COMPARISON: No prior exam. FINDINGS: Duplex sonography testing of the veins of the BILATERAL lower extremity was performed. Color flow greg ging shows all veins to be compressible with [id number] color filling. Pulsatile and phasic flow is present within all lower extremity deep and superficial veins examined. IMPRESSION: There is no deep vein or superficial vein thrombosis.
--- NOTE | 2024-08-11 12:22 | RAD REPORT ---
EXAMINATION: ONE VIEW CHEST XR CLINICAL INDICATION: Male, 54 years old.,edema TECHNIQUE: Frontal chest projection is submitted. Examination is limited by patient positioning and t echnique. COMPARISON: No prior exam. FINDINGS: Perihilar and basal central interstitial prominence, although suboptimal inspiratory effort somewhat limits evaluation. No pneumothorax or sizable effusion. The heart is normal in size. Mediastinal contours are unremarkable. IMPRESSION: Questionable perihilar and basal central interstitial prominence, could relate to mild central inters titial edema. Suboptimal inspiratory effort limits evaluation.
[2024-08-11 12:23] LABS: ALT/SGPT 152 U/L (16-61); AST/SGOT 83 U/L (15-37); Albumin 2.4 g/dL (3.4-5.0); Albumin/Globulin Ratio 0.6 (1.1-1.8); Alkaline Phosphatase 736 U/L (45-117); Anion Gap 9.4 mEq/L (5.0-15.0); BUN Blood Urea Nitrogen 18 mg/dL (7-18); Bicarbonate 26 mEq/L (21-32); Bilirubin Direct 0.6 mg/dL (0-0.2); Bilirubin Indirect, Calculated 0.6 mg/dL (0.2-0.8); Bilirubin Total 1.2 mg/dL (0.2-1.0); Globulin 3.7 g/dL (2.3-3.5); Glomerular Filtration Rate 126 ml/min (=/>90); Glucose Level 107 mg/dL (74-106); Magnesium 1.9 mg/dL (1.6-2.4); NT PRO-BNP 52 pg/mL (<125); Potassium 4.4 mEq/L (3.5-5.1); Protein, Total 6.1 g/dL (6.4-8.2); Sodium Level 126 mEq/L (136-145)
[2024-08-11 12:25] LABS: Troponin High Sensitivity < 3.0 pg/mL (<58.9)
[2024-08-11 12:38] LABS: Differential Total Cells Count 100; Eosinophils 1 % (0-3); Lymphocytes 4 % (15-42); Monocytes 2 % (0-10); Platelet Estimate ADEQ; Segmented Neutrophils 93 % (40-80)
[2024-08-11 12:39] LABS: Blood Morphology Comment NOT SEEN (NOT SEEN); Polychromasia 1+
[2024-08-11] MEDS ORDERED: VANCOMYCIN 1 GM/VIAL ONE (12:59)
[2024-08-11] MEDS ORDERED: CEFEPIME 1 GM/VIAL ONE (12:59)
[2024-08-11] MEDS ORDERED: NA CHLORIDE 0.9% 100 ML ONE (12:59)
[2024-08-11] MEDS ORDERED: NA CHLORIDE 0.9% 250 ML ONE (12:59)
--- NOTE | 2024-08-11 14:03 | RAD REPORT ---
EXAMINATION: CT ABDOMEN AND PELVIS WITH CONTRAST CLINICAL INDICATION: Abdominal pain TECHNIQUE: CT abdomen and pelvis was performed, after the administration of 100 cc Isovue-300.. Sagit capirce and coronal reconstructions were obtained. One or more of the following dose reduction techniques were used: Automated exposure control, adjustment of the mA and kV according to patient si ze, and iterative reconstruction. Unless otherwise specified, incidental findings do not require dedicated imaging follow-up. [id number]. Oral contrast was not given which limits evaluation of bowel and appendix. COMPARISON: .None FINDINGS: Liver is enlarged containing innumerable lesions measuring up to 9 cm. Both lobes are involved. Spleen, pancreas, right adrenal gland unremarkable. Small renal cysts. Mild soft tissue left adrenal gland. No evidence of diverticulitis. No bowel obstruction. Small to moderate amount of ascites.. Moderate amount of stool right colon Post surgical changes involve the spine. Soft tissue T12 vertebra likely no metastatic disease.: Diffuse edema within the subcutaneous tissues IMPRESSION: Hepatomegaly with innumerable metastases No bowel obstruction. No free air
--- NOTE | 2024-08-11 14:04 | RAD REPORT ---
EXAMINATION: CTA CHEST PE CLINICAL INDICATION: Shortness of breath TECHNIQUE: 100 cc 370 Isovue administered intravenously. This examination was performed according to an angiographic protocol with 3D post-processing. This involves 3D reconstructions, MIPs, volume rendered images and/or shaded surface rendering. One or more of the following dose reduction techniqu es were used: Automated exposure control, adjustment of the mA and/or kV according to patient size, and/or iterative reconstruction. Unless otherwise specified, incidental findings do not require dedic ated imaging follow-up. [id number]. COMPARISON: No prior exam. FINDINGS: A 2.5 cm low-density area within the right main pulmonary artery. Remainder of the pulmonary arteries unremarkable An aortic aneurysm not noted. No pleural effusion. No pericardial effusion. Innumerable bilateral small pulmonary nodules are Areas of atelectasis within the lung bases. Post surgical changes involve the spine. Soft tissue involves the upper thoracic spine. IMPRESSION: 2.5 cm low-density area right main pulmonary artery most likely artifact rather than thrombus. No kiya ss evidence of a pulmonary embolus Innumerable bilateral pulmonary nodules consistent with metastases Soft tissue upper thoracic spine likely no metastatic disease.
[2024-08-11] MEDS ORDERED: FUROSEMIDE 20 MG/ 2ML VIAL ONE (15:13)
[2024-08-11 15:25] LABS: Specific Gravity > 1.030 (1.005-1.030); Sqamous Epithelial None Seen /HPF (None Seen); Urine Bacteria None Seen /HPF (<20); Urine Bilirubin 1+ (Negative); Urine Blood Negative (Negative); Urine Clarity Extremely Turbid (Clear); Urine Color Yellow (Yellow); Urine Crystals Unidentified Few /HPF (None Seen); Urine Culture Reflex Order NOT NEEDED; Urine Glucose NEGATIVE (Negative); Urine Ketones NEGATIVE (Negative); Urine Microscopic Reflex YN ORDER UMIC; Urine Mucus Slight /HPF (None Seen); Urine Nitrite NEGATIVE (Negative); Urine Protein 1+ (Negative); Urine Urobilinogen 3+ (Normal); Urine WBC <5 /HPF (<5); Urine Yeast (Budding) Trace /HPF (None Seen)
--- NOTE | 2024-08-11 15:31 | ER ---
Nurse's Notes [facility] Name: Marcin Herrera Age: 54 yrs Sex: Male : 1970 Arrival Date: 08/11/2024 Time: 10:16 Bed 3 Private MD: Diagnosis: Sepsis, unspecified organism;Generalized edema Presentation: 08/11 10:51 Chief complaint: Swelling all over x 3-4 days. Being treated at [facility] for hb stage 4 melanoma, numerous mike noted to recent surgical incisions on back. C collar in place on arrival. Coronavirus screen: At this time, the client does not indicate any symptoms associated with coronavirus-19. Ebola Screen: No symptoms or risks identified at this time. Initial Sepsis Screen: Does the patient meet any 2 criteria? No. Patient's initial sepsis screen is negative. Does the patient have a suspected source of infection? No. Patient's initial sepsis screen is negative. Risk Assessment: Do you want to hurt yourself or someone else? Patient reports no desire to harm self or others. Onset of symptoms was August 07, 2024. 10:51 Method Of Arrival: Ambulatory hb 10:51 Acuity: CHARLIE 2 hb Historical: - Allergies: 10:53 Amoxicillin; hb 10:53 Coconut; hb 10:53 Erythromycin; hb 10:53 Wasps; hb 10:53 yellow jackets; hb - PMHx: 10:53 Hypertensive disorder; hb - PSHx: 10:53 hydrocele; hb - Immunization history:: Adult Immunizations up to date. - Infectious Disease History:: Denies. - Social history:: Smoking status: Patient reports the use of cigarette tobacco products, smokes one-half pack cigarettes per day. Screenin:04 Abuse screen: Denies threats or abuse. Nutritional screening: No deficits noted. ap3 Tuberculosis screening: No symptoms or risk factors identified. 11:05 [facility] ED Fall Risk Assessment (Adult) Mobility Assist Device Used. ap3 16:59 [facility] ED Fall Risk Assessment (Adult) History of falling in the last 3 months, ss including since admission No falls in past 3 months (0 pts) Confusion or Disorientation No (0 pts) Intoxicated or Sedated No (0 pts) Impaired Gait No (0 pts) Altered Elimination Yes (1 pt) Score/Fall Risk Level 3 or more points = High Risk Maintained a safe environment, Used ambulatory aids as needed (educated on \T\ assisted with). Assessment: 11:03 General: Appears uncomfortable, Behavior is calm, cooperative, appropriate for age. ap3 Pain: Complains of pain in back, abdomen and neck. Neuro: Level of Consciousness is awake, alert, obeys commands, Oriented to person, place, time, situation, Appropriate for age Speech is normal. Cardiovascular: Patient's skin is warm and dry. Respiratory: Airway is patent Respiratory effort is even, unlabored, Respiratory pattern is regular, symmetrical. 11:56 Reassessment: No changes from previously documented assessment. Patient and/or family ll1 updated on plan of care and expected duration. Pain level reassessed. Patient is alert, oriented x 3, equal unlabored respirations, skin warm/dry/pink. 13:21 Reassessment: No changes from previously documented assessment. Patient and/or family ll1 updated on plan of care and expected duration. Pain level reassessed. Patient is alert, oriented x 3, equal unlabored respirations, skin warm/dry/pink. 13:46 Reassessment: No changes from previously documented assessment. Patient and/or family ll1 updated on plan of care and expected duration. Pain level reassessed. 13:59 Reassessment: No changes from previously documented assessment. Patient and/or family ll1 updated on plan of care and expected duration. Pain level reassessed. 15:00 Reassessment: No changes from previously documented assessment. Patient and/or family ss updated on plan of care and expected duration. Pain level reassessed. 15:46 Reassessment: No changes from previously documented assessment. Patient and/or family ss updated on plan of care and expected duration. Pain level reassessed. 16:59 GI: Bowel sounds present X 4 quads. Abd is soft and non tender X 4 quads. ss Vital Signs: 10:51 BP 122 / 70; Pulse 117; Resp 20; Temp 97.8; Pulse Ox 100% on R/A; Weight 77.11 kg; hb Height 6 ft. 0 in. ; Pain 8/10; 11:03 BP 116 / 69; Pulse 95; Pulse Ox 100% on R/A; ap3 12:46 BP 112 / 67; Pulse 87; Resp 19; Pulse Ox 98% on R/A; ll1 13:59 BP 103 / 60; Pulse 90; Resp 17; ll1 15:46 BP 110 / 62; Pulse 81; Resp 17; Pulse Ox 100% ; ss 10:51 Body Mass Index 23.06 (77.11 kg, 182.88 cm) hb 10:51 Pain Scale: Adult hb ED Course: 10:20 Patient arrived in ED. cj3 10:21 Jez Alcantara PA is PHCP. cp 10:21 Gen Felix MD is Attending Physician. cp 10:53 Triage completed. hb 10:54 Arm band placed on. hb 11:02 EKG done, by ED staff, reviewed by Gen Felix MD. ap3 11:03 Patient has correct armband on for positive identification. Placed in gown. Bed in low ap3 position. Call light in reach. Side rails up X2. Adult w/ patient. Client placed on continuous cardiac and pulse oximetry monitoring. NIBP monitoring applied. library monitor on. Pulse ox on. NIBP on. 11:32 US Extremity Venous W Compression Jonathan In Process Unspecified. EDMS 11:33 XRAY Chest (1 view) In Process Unspecified. EDMS 11:54 Type And Screen Sent. ll1 11:55 Dwain Sanchez, RN is Primary Nurse. ll1 11:55 Initial lab(s) drawn, by mn, sent to lab. Inserted saline lock: 22 gauge in left ll1 antecubital area, using aseptic technique. Blood collected. Flushed with 10 mL NS. 12:00 Provided Education on: ER procedures and process. ss 12:56 Lactate w/ 2H reflex if indic. Sent. ll1 13:13 CT Chest For PE Angio In Process Unspecified. EDMS 13:13 CT Abd/Pelvis - IV Contrast Only In Process Unspecified. EDMS 13:15 Blood Culture Adult (2) Sent. ll1 15:04 Urinalysis w/ reflexes Sent. ss 15:39 initiated transfer to [facility]. bd 15:54 pt accepted in transfer to [facility] ER by Dr Madrigal, admin approval given by conor Zhang. 16:59 No provider procedures requiring assistance completed. Patient transferred, IV remains ss in place. Administered Medications: 12:04 Drug: fentaNYL (PF) IVP 25 mcg IVP once {Note: RASS 0, pain 9/10.} Route: IVP; Site: ll1 left antecubital; 12:23 Follow up: Response: No adverse reaction; Pain is decreased ll1 12:04 Drug: Ondansetron IVP 4 mg IVP once; over 2 minutes Route: IVP; Site: left antecubital; ll1 12:23 Follow up: Response: No adverse reaction 1 13:21 Drug: Cefepime IVPB 1 grams IVPB at 200 ml/hr once over 30 mins; (mix in NS 100 mL) ll1 Route: IVPB; Rate: 200 ml/hr; Infused Over: 30 mins; Site: left antecubital; 13:58 Follow up: Response: No adverse reaction; IV Status: Completed infusion; IV Intake: ll1 100ml 13:21 Drug: fentaNYL (PF) IVP 25 mcg IVP once {Note: pain 7/10 RASS 0.} Route: IVP; Site: ll1 left antecubital; 15:00 Follow up: Response: No adverse reaction; Pain is decreased; RASS: Alert and Calm (0) ss 13:58 Drug: vancoMYCIN IVPB 1 grams IVPB once over 2 hrs Route: IVPB; Infused Over: 2 hrs; ll1 Site: left antecubital; 15:00 Follow up: Response: No adverse reaction; IV Status: Completed infusion; IV Intake: ss 250ml 15:08 CANCELLED (Physician Discretion): [id number] mg IVP once; give over 2 minutes cp 15:46 Drug: Furosemide IVP 20 mg IVP once; give over 2 minutes if systolic pressure >110 ss Route: IVP; Site: left antecubital; 16:58 Follow up: Response: No adverse reaction ss Medication: 17:00 VIS not applicable for this client. ss Intake: 13:58 IV: 100ml; Total: 100ml. ll1 15:00 IV: 250ml; Total: 350ml. ss Outcome: 15:30 ER care complete, transfer ordered by . cp 16:59 Transferred by ground EMS to [facility], Transfer form ss completed. Note: report called to Leslie Boucher RN 16:59 Condition: stable 16:59 Instructed on the need for transfer, 17:51 Patient left the ED. ll1 Signatures: Dispatcher [employer] EDMS Savannah Wang Shelby, RN RN ss Jez Alcantara PA PA cp Miranda Young, RN RN Christelle Lepe RN RN ap3 Dwain Sanchez RN RN ll1 Aileen Yusuf 3 Corrections: (The following items were deleted from the chart) 12:04 12:04 fentaNYL (PF) IVP 25 mcg IVP in left antecubital ll1 ll1 12:54 12:46 Pulse 87bpm; Resp 19bpm; Pulse Ox 98% RA; ll1 ll1
--- NOTE | 2024-08-11 15:31 | EDPHYS ---
Physician Documentation [facility] Name: Marcin Herrera Age: 54 yrs Sex: Male : 1970 Arrival Date: 08/11/2024 Time: 10:16 Bed 3 Private MD: ED Physician Gen Felix HPI: 08/11 10:55 This 54 yrs old Male presents to ER via Ambulatory with complaints of Swelling of Lower cp Extremity, Abdominal Swelling. 10:55 The patient presents with swelling, tenderness. The complaints affect the abdomen, cp pelvis, right leg and left leg. Context: over past 3-4 days. 10:55 The patient has shortness of breath at rest. Duration: The symptoms are continuous, and cp are steadily getting worse. Associated signs and symptoms: Pertinent negatives: chest pain, productive cough, diaphoresis, fever, vomiting. Patient reports PMHX significant for stage 4 melanoma. Recent surgery to remove multiple masses from spinal canal at [facility] in [place] approximately 10 days ago. Denies fever. C/o shortness of breath and increased swelling of legs and abdomen. Patient reports receiving about 10 units of blood after surgery. Denies any current black stools and/or blood in stools. Historical: - Allergies: 10:53 Amoxicillin; hb 10:53 Coconut; hb 10:53 Erythromycin; hb 10:53 Wasps; hb 10:53 yellow jackets; hb - PMHx: 10:53 Hypertensive disorder; hb - PSHx: 10:53 hydrocele; hb - Immunization history:: Adult Immunizations up to date. - Infectious Disease History:: Denies. - Social history:: Smoking status: Patient reports the use of cigarette tobacco products, smokes one-half pack cigarettes per day. ROS: 10:59 Constitutional: Negative for body aches, chills, fever, poor PO intake, cp 10:59 Cardiovascular: Positive for edema, Negative for chest pain, 10:59 Respiratory: Positive for shortness of breath, at rest. 10:59 Eyes: Negative for injury, pain, redness, and discharge, cp 10:59 Abdomen/GI: Positive for abdominal distension, 10:59 Back: Positive for pain at rest, pain with movement, 10:59 Neuro: Negative for altered mental status, dizziness, headache, numbness, syncope, near syncope, weakness, 10:59 All other systems are negative, cp Exam: 11:05 Constitutional: The patient appears in no acute distress, alert, awake, cp non-diaphoretic, non-toxic, well developed, well nourished, uncomfortable, 11:05 Head/Face: Normocephalic, atraumatic. cp 11:05 Eyes: Periorbital structures: appear normal, Conjunctiva: normal, no exudate, no injection, Sclera: no appreciated abnormality, Lids and lashes: appear normal, bilaterally, 11:05 ENT: External ear(s): are unremarkable, Nose: is normal, Mouth: Lips: moist, Oral cp mucosa: moist, Posterior pharynx: Airway: no evidence of obstruction, patent, swelling, is not appreciated, erythema, is not appreciated, exudate, is not appreciated, 11:05 Neck: ROM/movement: is normal, is supple, without pain, no range of motions limitations, no meningismus, no nuchal rigidity, 11:05 Chest/axilla: Inspection: normal, 11:05 Cardiovascular: Rate: tachycardic, Rhythm: regular, Edema: ankle edema, that is marked, JVD: is not appreciated, 11:05 Respiratory: the patient does not display signs of respiratory distress, Respirations: labored breathing, that is mild, Breath sounds: decreased breath sounds, that are mild, throughout, 11:05 Abdomen/GI: Inspection: distension, that is moderate, Bowel sounds: active, all quadrants, Palpation: soft, in all quadrants, mild abdominal tenderness, in all quadrants, rebound tenderness, is not appreciated, 11:05 Back: surgical incision extending from cervical spine to lumbar spine appears with minimal erythema, no gross swelling and no drainage expressed, 11:05 Neuro: Orientation: to person, place \T\ time. Mentation: is normal, Motor: moves all fours, strength is normal, Gait: is steady, Vital Signs: 10:51 BP 122 / 70; Pulse 117; Resp 20; Temp 97.8; Pulse Ox 100% on R/A; Weight 77.11 kg; hb Height 6 ft. 0 in. ; Pain 8/10; 11:03 BP 116 / 69; Pulse 95; Pulse Ox 100% on R/A; ap3 12:46 BP 112 / 67; Pulse 87; Resp 19; Pulse Ox 98% on R/A; ll1 13:59 BP 103 / 60; Pulse 90; Resp 17; ll1 15:46 BP 110 / 62; Pulse 81; Resp 17; Pulse Ox 100% ; ss 10:51 Body Mass Index 23.06 (77.11 kg, 182.88 cm) hb 10:51 Pain Scale: Adult hb MDM: 10:42 Medical Screening Exam initiated cp 11:00 Differential diagnosis: CHF exacerbation, pneumonia, Pneumothorax pulmonary edema, cp Pulmonary Embolism Sepsis anemia, infected surgical wound. 13:10 ED course: will not give 30 cc per kg bolus of fluid due lower extremity edema with cp abdominal swelling. 14:30 Data reviewed: vital signs, nurses notes, lab test result(s), EKG, radiologic studies, cp CT scan, plain films, I have discussed the patient's presentation/case with the attending Emergency Department Physician; and as a result, I will transfer patient for continuity of care. 14:30 Antibiotic administration: cefepime and vancomycin. cp 15:45 ED course: transfer to [facility] with accepting physician DR Ugo Arguello after cp discussion. 08/11 10:53 Order name: Basic Metabolic Panel; Complete Time: 12:38 cp 08/11 13:14 Interpretation: Normal except: NA 126; CL 95; GLUC 107; CRE 0.46. 08/11 10:53 Order name: CBC with Diff; Complete Time: 13:14 08/11 12:19 Interpretation: Normal except: WBC 24.50; RBC 2.71; HGB 8.0; HCT 24.5; PLT 141; RDW cp 17.9; LESTER% 91.6; LYM% 4.3; NEUT A 22.4. 08/11 10:53 Order name: LFT's; Complete Time: 12:38 cp 08/11 13:15 Interpretation: Normal except: AST 83; ALT 152; ALK 736; BILIT 1.2; BILID 0.6; TP 6.1; cp ALB 2.4; GLOB 3.7; A/G 0.6. 08/11 10:53 Order name: Magnesium; Complete Time: 12:38 cp 08/11 10:53 Order name: NT PRO-BNP; Complete Time: 12:38 cp 08/11 13:16 Interpretation: Reviewed. 08/11 10:53 Order name: PT-INR; Complete Time: 12:19 cp 08/11 10:53 Order name: Troponin HS; Complete Time: 12:38 cp 08/11 10:59 Order name: Type And Screen; Complete Time: 13:14 cp 08/11 12:39 Order name: Manual Differential; Complete Time: 13:14 EDMS 08/11 13:14 Interpretation: Normal except: SEGS 93; LYM 4. cp 08/11 12:40 Order name: Blood Culture Adult (2) cp 08/11 12:40 Order name: Lactate w/ 2H reflex if indic.; Complete Time: 14:07 cp 08/11 12:40 Order name: Ptt, Activated; Complete Time: 13:14 cp 08/11 12:40 Order name: Urinalysis w/ reflexes; Complete Time: 15:41 cp 08/11 10:53 Order name: XRAY Chest (1 view); Complete Time: 12:23 cp 08/11 10:59 Order name: US Extremity Venous W Compression Jonathan; Complete Time: 12:19 cp 08/11 12:39 Order name: CT Chest For PE Angio; Complete Time: 14:07 cp 08/11 12:39 Order name: CT Abd/Pelvis - IV Contrast Only; Complete Time: 14:07 cp 08/11 14:10 Interpretation: Report reviewed. cp 08/11 10:53 Order name: Cardiac monitoring; Complete Time: 11:04 cp 08/11 10:53 Order name: EKG - Nurse/Tech; Complete Time: 11:04 cp 08/11 10:53 Order name: IV Saline Lock; Complete Time: 11:54 cp 08/11 10:53 Order name: Labs collected and sent; Complete Time: 11:54 cp 08/11 10:53 Order name: O2 Per Protocol; Complete Time: 11:04 cp 08/11 10:53 Order name: O2 Sat Monitoring; Complete Time: 11:04 cp 08/11 12:40 Order name: Vital Signs; Complete Time: 12:54 cp Administered Medications: 12:04 Drug: fentaNYL (PF) IVP 25 mcg IVP once {Note: RASS 0, pain 9/10.} Route: IVP; Site: ll1 left antecubital; 12:23 Follow up: Response: No adverse reaction; Pain is decreased ll1 12:04 Drug: Ondansetron IVP 4 mg IVP once; over 2 minutes Route: IVP; Site: left antecubital; ll1 12:23 Follow up: Response: No adverse reaction ll1 13:21 Drug: Cefepime IVPB 1 grams IVPB at 200 ml/hr once over 30 mins; (mix in NS 100 mL) ll1 Route: IVPB; Rate: 200 ml/hr; Infused Over: 30 mins; Site: left antecubital; 13:58 Follow up: Response: No adverse reaction; IV Status: Completed infusion; IV Intake: ll1 100ml 13:21 Drug: fentaNYL (PF) IVP 25 mcg IVP once {Note: pain 7/10 RASS 0.} Route: IVP; Site: ll1 left antecubital; 15:00 Follow up: Response: No adverse reaction; Pain is decreased; RASS: Alert and Calm (0) ss 13:58 Drug: vancoMYCIN IVPB 1 grams IVPB once over 2 hrs Route: IVPB; Infused Over: 2 hrs; ll1 Site: left antecubital; 15:00 Follow up: Response: No adverse reaction; IV Status: Completed infusion; IV Intake: ss 250ml 15:08 CANCELLED (Physician Discretion): [id number] mg IVP once; give over 2 minutes cp 15:46 Drug: Furosemide IVP 20 mg IVP once; give over 2 minutes if systolic pressure >110 ss Route: IVP; Site: left antecubital; 16:58 Follow up: Response: No adverse reaction ss Disposition: 08/12 08:01 Co-signature as Attending Physician, Gen Felix MD I reviewed the patient's care rn provided by the Advanced Practice Provider and agree with the diagnosis and treatment plan. Disposition Summary: 08/11/24 15:30 Transfer Ordered Notes: Transfer Location: [facility] cp Reason: Higher level of care cp Condition: Stable cp Problem: new cp Symptoms: have improved cp Accepting Physician: DR Ugo Arguello(08/11/24 17:51) ll1 Diagnosis - Sepsis, unspecified organism cp - Generalized edema cp Forms: - Medication Reconciliation Form cp - SBAR form cp Signatures: Dispatcher [employer] Gen Koo MD MD rn Blanchard, Shelby, RN RN ss Jez Alcantara PA PA cp Miranda Young RN RN hb Lewis, Lynsay, RN RN ll1 Corrections: (The following items were deleted from the chart) 08/11 10:53 10:53 BASIC METABOLIC PANEL+C.LAB.BRZ ordered. EDMS EDMS 10:53 10:53 CBC+H.LAB.BRZ ordered. EDMS EDMS 10:53 10:53 HEPATIC FUNCTION+C.LAB.BRZ ordered. EDMS EDMS 10:53 10:53 MAGNESIUM+C.LAB.BRZ ordered. EDMS EDMS 10:53 10:53 PROBNP+C.LAB.BRZ ordered. EDMS EDMS 10:53 10:53 PROTIME (+INR)+COAG.LAB.BRZ ordered. EDMS EDMS 10:53 10:53 Troponin High Sensitivity+C.LAB.BRZ ordered. EDMS EDMS 10:54 10:54 Chest Single View+RAD.RAD.BRZ ordered. EDMS EDMS 12:39 12:39 Abdomen Pelvis W Con+CT.RAD.BRZ ordered. EDMS EDMS 12:41 12:40 BLOOD CULTURE*+BA.LAB.BRZ ordered. EDMS EDMS 12:41 12:40 LACTATE+C.LAB.BRZ ordered. EDMS EDMS 12:41 12:40 PTT, ACTIVATED+COAG.LAB.BRZ ordered. EDMS EDMS 12:41 12:40 Urinalysis+U.LAB.BRZ ordered. EDMS EDMS 15:08 15:08 Furosemide IVP 20 mg IVP once; give over 2 minutes ordered. cp cp 15:55 15:30 doctor cp 17:51 15:55 DR Ugo Arguello cp ll1 08/12 15:21 08/11 10:55 Patient reports PMHX significant for stage 4 melanoma. Recent surgery to remove multiple masses from spinal canal at [facility] in [place] approximately 10 days ago. Denies fever. C/o shortness of breath and increased swelling of legs and abdomen. cp 08/12 15:31 15:29 ED course: transfer to [facility] with accepting physician DR Arizmendi. cp
[2024-08-11 18:23] VITALS: TEMP 97.8
[2024-08-11 18:37] VITALS: BP 110/62; O2SAT 100
--- NOTE | 2024-08-12 11:00 | EKG ---
Test Date: 2024-08-11 Test Time: 10:58:48 [employer]: ALP MEASUREMENT RESULTS: Intervals: Rate: 91 VT: 118 QRSD: 96 QT: 368 QTc: 452 [place]: P: 47 VT: 118 QRS: 44 T: 67 INTERPRETIVE STATEMENTS: Normal sinus rhythm Normal ECG Compared to ECG 01/28/2023 14:50:49 Incomplete right bundle-branch block no longer present Electronically Signed On 08-12-24 10:57:11 CDT by Nima Stafford
== END 2024-08-11 17:51 | disposition short-term general hospital (02) ==
LOC: ER 10:16
DX: R60.1 Generalized edema (principal); A41.9 Sepsis, unspecified organism; Z98.890 Other specified postprocedural states; Z85.820 Personal history of malignant melanoma of skin; F17.210 Nicotine dependence, cigarettes, uncomplicated
CPT/HCPCS: 96365; 96367; 93005; 87040 ×2; 85025; 81001; 80048; 36415; 86900; 83735; 86850; 85610; 86901; 80076; 83605; 85730; 84484; 83880; 71275; 74177; 71045; 93970; 96375; 99285; Q9967; J1940; J3010; J3370; J2405; J7050; J0692